=== PATIENT | male | born 1970 | race Caucasian/White ===

== ENCOUNTER 2018-11-06 19:26 | Emergency (ER) | payer BC, OTHER ==
[~2018-11-06] VITALS: Ht 180.3 cm; Wt 99.8 kg
[~2018-11-06 19:26] MED LIST: ALBU90OI INH; ERYT.5TO RIGHTEYE; HYDACE5 PO; ONDA4ODT MM; OSEL75CA PO; OXYACE5T PO; Percocet 10-321 EACH PO; Percocet 5-3251 EACH PO; RXERYTOPTH OP; RXONDA4ODT MM; TOBR.3OPSO OD; [UNRECOGNIZED DRUG - REMARK]
[2018-11-06] MEDS ORDERED: IBUP800 PO (21:34)
== END 2018-11-06 21:41 | disposition home or self-care (01) ==
LOC: ER 19:26
DX: S90.31XA Contusion of right foot, initial encounter (principal); W55.12XA Struck by horse, initial encounter
CPT/HCPCS: 73630; 99283-25

== ENCOUNTER 2019-04-17 00:35 | Inpatient (IN) | payer BC, OTHER ==
[~2019-04-17] VITALS: Ht 180.3 cm; Wt 96.5 kg
[~2019-04-17 00:35] MED LIST changes: +IBUP800 PO
[2019-04-17] MEDS ORDERED: CEPH500 PO (00:57)
[2019-04-17 01:59] LABS: BASOPHILS ABSOLUTE AUTO 0.05 K/mm3 (0.00-0.23); BASOPHILS PERCENT AUTO 0 % (0-2); EOSINOPHILS ABSOLUTE AUTO 0.07 K/mm3 (0.00-0.68); EOSINOPHILS PERCENT AUTO 1 % (0-6); Hematocrit 43.7 % (37.0-53.0); Hemoglobin 14.3 g/dL (13.5-17.5); IMMATURE GRAN ABSOLUTE AUTO 0.12 K/mm3 (0.00-0.10); IMMATURE GRAN PERCENT AUTO 1 % (0-1); LYMPHOCYTES ABSOLUTE AUTO 1.76 K/mm3 (0.84-5.20); LYMPHOCYTES PERCENT AUTO 12 % (21-46); MONOCYTES ABSOLUTE AUTO 1.16 K/mm3 (0.16-1.47); MONOCYTES PERCENT AUTO 8 % (4-13); Mean Corpuscular HGB Conc 32.7 g/dL (31.5-36.5); Mean Corpuscular Volume 89 fL (80-100); NEUTROPHILS ABSOLUTE AUTO 11.09 K/mm3 (1.96-9.15); NEUTROPHILS PERCENT AUTO 78 % (41-73); Platelet Count 281 K/mm3 (150-400); RDW Standard Deviation 42.5 fL (35.1-46.3); Red Blood Cell Count 4.93 M/mm3 (4.30-5.90); White Blood Cell Count 14.25 K/mm3 (4.00-11.30)
[2019-04-17 02:05] LABS: Alanine Aminotransfer (ALT/SGP 88 U/L (12-78); Albumin, Blood 3.8 g/dL (3.4-5.0); Albumin/Globulin Ratio 0.8 (0.8-1.8); Alk Phos 103 U/L (50-136); Anion Gap 7 mmol/L (6-16); Aspartate Aminotrans (AST/SGOT 58 U/L (12-37); Bilirubin, Total 1.6 mg/dL (0.1-1.0); Blood Urea Nitrogen 13 mg/dL (8-24); Bun/Creatinine Ratio 16.1 (12.0-20.0); CO2, Blood 28 mmol/L (21-32); Calcium, Blood 9.2 mg/dL (8.5-10.1); Chloride, Blood 103 mmol/L (98-108); Creatinine, Blood 0.81 mg/dL (0.60-1.20); Globulin, Blood 4.6 g/dL (2.2-4.0); Glomerular Filtration Rate >60 (60-); Glucose, Blood 120 mg/dL (70-99); Potassium, Blood 3.4 mmol/L (3.5-5.5); Sodium, Blood 138 mmol/L (136-145); Total Protein, Blood 8.4 g/dL (6.4-8.2)
[2019-04-17 02:59] LABS: WBC Count, Synovial Fluid 55 /mm3 (0-180)
[2019-04-17 03:07] LABS: Appearance, Synovial Fluid Clear (Clear); Color, Synovial Fluid Yellow (None-P Yel); RBC Count, Synovial Fluid 428 /mm3 (0-0)
[2019-04-17 03:33] LABS: Lymphs, Synovial Fluid 57 % (0-15); Monocytes/Macrophages, Synovia 36 % (0-65); Neutrophils, Synovial Fluid 7 % (0-24)
--- NOTE | 2019-04-17 16:49 | NUR ---
SHIFT SUMMARY ULTRASOUND THIS MORNING REVEALED FLUID IN LEFT LEG (AFFECTED AREA - KNEE). PT'S LEG FEELS HOT DOWN TO HIS ANKLE. CELLULITIS DIAGNOSIS, ALSO SUSPECTED HEMATOMA. LARGE "BOIL TYPE" ERUPTION INSIDE THE LEFT LEG NEAR THE KNEE. PT STATES THE AFFECTED AREA IS TENDER TO THE TOUCH. AWAITING ORTHO CONSULT TO INVESTIGATE. IV ANTIBIOTICS ORDERED. PT STATED HE HAD SOME PAIN AND NAUSEA THIS SHIFT. MEDICATED PER EMAR. HE IS INDEPENDENT IN THE ROOM. A&O X4.
--- NOTE | 2019-04-18 03:27 | NUR ---
NOC SHIFT SUMMARY PT IS PLEASANT AND COOPERATIVE WITH CARE. HE HAD VISITORS THIS EVENING WHO LEFT AROUND BEDTIME. HAS SLEPT ON AND OFF THROUGH THE NIGHT. PAIN MANAGED PER EMAR. VSS. AAOX4, RESP EVEN AND UNLABORED. APPEARS IN NO ACUTE DISTRESS. NO ACUTE CHANGES THIS NIGHT. HIS LEG LOOKS SIMILAR TO LAST NIGHT. WILL CONTINUE TO MONITOR.
[2019-04-18 05:08] LABS: BASOPHILS ABSOLUTE AUTO 0.05 K/mm3 (0.00-0.23); BASOPHILS PERCENT AUTO 1 % (0-2); EOSINOPHILS PERCENT AUTO 2 % (0-6); Hematocrit 38.6 % (37.0-53.0); Hemoglobin 12.7 g/dL (13.5-17.5); IMMATURE GRAN ABSOLUTE AUTO 0.05 K/mm3 (0.00-0.10); IMMATURE GRAN PERCENT AUTO 1 % (0-1); LYMPHOCYTES ABSOLUTE AUTO 1.41 K/mm3 (0.84-5.20); LYMPHOCYTES PERCENT AUTO 13 % (21-46); MONOCYTES ABSOLUTE AUTO 0.94 K/mm3 (0.16-1.47); MONOCYTES PERCENT AUTO 9 % (4-13); Mean Corpuscular HGB 28.7 pg (26.0-34.0); Mean Corpuscular HGB Conc 32.9 g/dL (31.5-36.5); Mean Corpuscular Volume 87 fL (80-100); Mean Platelet Volume 10.6 fL (9.1-12.4); NEUTROPHILS ABSOLUTE AUTO 8.33 K/mm3 (1.96-9.15); NEUTROPHILS PERCENT AUTO 76 % (41-73); Platelet Count 281 K/mm3 (150-400); RDW Coefficient Variation 12.9 % (11.7-14.2); RDW Standard Deviation 41.1 fL (35.1-46.3); Red Blood Cell Count 4.42 M/mm3 (4.30-5.90); White Blood Cell Count 10.98 K/mm3 (4.00-11.30)
[2019-04-18 05:38] LABS: Anion Gap 6 mmol/L (6-16); Blood Urea Nitrogen 15 mg/dL (8-24); Bun/Creatinine Ratio 17.2 (12.0-20.0); CO2, Blood 31 mmol/L (21-32); Calcium, Blood 8.7 mg/dL (8.5-10.1); Chloride, Blood 103 mmol/L (98-108); Creatinine, Blood 0.87 mg/dL (0.60-1.20); Glomerular Filtration Rate >60 (60-); Glucose, Blood 113 mg/dL (70-99); Phosphorus, Blood 4.2 mg/dL (2.5-4.9); Potassium, Blood 3.7 mmol/L (3.5-5.5); Sodium, Blood 140 mmol/L (136-145)
--- NOTE | 2019-04-18 10:41 | NUR ---
CALLED MADE TO DR. JACOBS OFFICE EDIE AT DR. JACOBS OFFICE FORWARDED PT INFO TO DR. CLIFTON. OFFICE INFORMED THAT DC IS PENDING ORTHO CONSULT
[2019-04-18] MEDS ORDERED: TRAM50 PO (11:03)
[2019-04-18] MEDS ORDERED: Vsl#3 Capsule1 EACH PO (11:03)
[2019-04-18 11:09] LABS: Albumin, Blood 2.9 g/dL (3.4-5.0); Albumin/Globulin Ratio 0.7 (0.8-1.8); Bilirubin, Direct 0.2 mg/dL (0.0-0.3); Bilirubin, Indirect 0.5 mg/dL (0.1-0.7); Bilirubin, Total 0.7 mg/dL (0.1-1.0); Globulin, Blood 4.2 g/dL (2.2-4.0); Total Protein, Blood 7.1 g/dL (6.4-8.2)
--- NOTE | 2019-04-18 11:46 | NUR ---
PT DISCHARGED PT DISCHARGED IN STABLE CONDITION WITH VSS. PT EDUCATED ON DC INSTRUCTIONS & FOLLOW UPS. PT MEDS FAXED TO [facility]. PT DENIES NEED FOR FURTHER INSTRUCTION. PT REFUSED WHEELCHAIR RIDE OUT & WALKED OUT OF BUILDING TO BE DRIVEN HOME BY DAUGHTER.
== END 2019-04-18 11:46 | disposition home or self-care (01) | DRG 603 ==
LOC: ER 00:35 → MEDS 04:00 → ENPENDDIS 04-18 11:28 → MEDS 04-18 11:46
PROVIDERS: Emergency Medicine; Internal Medicine; ADMIT Family Medicine
PROC: 0S9D3ZX Drainage of Left Knee Joint, Percutaneous Approach, Diagnostic (ICD-10-PCS; principal; 2019-04-17)
DX: L03.116 Cellulitis of left lower limb (principal); W22.8XXA Striking against or struck by other objects, initial encounter; E87.6 Hypokalemia; T24.232A Burn of second degree of left lower leg, initial encounter; X19.XXXA Contact with other heat and hot substances, initial encounter; S70.12XA Contusion of left thigh, initial encounter
CPT/HCPCS: 20610; 36415; 76882; 80053; 80069; 80076; 82248; 83605; 85025; 87040; 87070; 87075; 87205; 89051; 96365; 96372; 96375; 99284-25; J0690; J1650; J1885; J2405; J2543; J7050

== ENCOUNTER 2019-04-20 10:16 | Inpatient (IN) | payer BC, OTHER ==
[~2019-04-20] VITALS: Ht 180.3 cm; Wt 98.4 kg
[~2019-04-20 10:16] MED LIST changes: +CEPH500 PO; +TRAM50 PO; +Vsl#3 Capsule1 EACH PO
[2019-04-20 11:21] LABS: BASOPHILS ABSOLUTE AUTO 0.04 K/mm3 (0.00-0.23); BASOPHILS PERCENT AUTO 0 % (0-2); EOSINOPHILS ABSOLUTE AUTO 0.13 K/mm3 (0.00-0.68); EOSINOPHILS PERCENT AUTO 1 % (0-6); Hematocrit 40.6 % (37.0-53.0); Hemoglobin 13.2 g/dL (13.5-17.5); IMMATURE GRAN ABSOLUTE AUTO 0.07 K/mm3 (0.00-0.10); IMMATURE GRAN PERCENT AUTO 1 % (0-1); LYMPHOCYTES ABSOLUTE AUTO 1.63 K/mm3 (0.84-5.20); LYMPHOCYTES PERCENT AUTO 12 % (21-46); MONOCYTES PERCENT AUTO 8 % (4-13); Mean Corpuscular HGB 28.6 pg (26.0-34.0); Mean Corpuscular HGB Conc 32.5 g/dL (31.5-36.5); Mean Corpuscular Volume 88 fL (80-100); Mean Platelet Volume 10.7 fL (9.1-12.4); NEUTROPHILS ABSOLUTE AUTO 10.64 K/mm3 (1.96-9.15); NEUTROPHILS PERCENT AUTO 78 % (41-73); Platelet Count 359 K/mm3 (150-400); RDW Coefficient Variation 12.6 % (11.7-14.2); RDW Standard Deviation 40.5 fL (35.1-46.3); Red Blood Cell Count 4.61 M/mm3 (4.30-5.90); White Blood Cell Count 13.61 K/mm3 (4.00-11.30)
[2019-04-20 11:34] LABS: Alanine Aminotransfer (ALT/SGP 45 U/L (12-78); Albumin, Blood 3.1 g/dL (3.4-5.0); Albumin/Globulin Ratio 0.6 (0.8-1.8); Alk Phos 118 U/L (50-136); Anion Gap 4 mmol/L (6-16); Aspartate Aminotrans (AST/SGOT 27 U/L (12-37); Bilirubin, Total 0.9 mg/dL (0.1-1.0); Blood Urea Nitrogen 12 mg/dL (8-24); Bun/Creatinine Ratio 15.2 (12.0-20.0); CO2, Blood 31 mmol/L (21-32); Calcium, Blood 8.9 mg/dL (8.5-10.1); Chloride, Blood 102 mmol/L (98-108); Creatinine, Blood 0.79 mg/dL (0.60-1.20); Globulin, Blood 4.8 g/dL (2.2-4.0); Glomerular Filtration Rate >60 (60-); Glucose, Blood 109 mg/dL (70-99); Sodium, Blood 137 mmol/L (136-145); Total Protein, Blood 7.9 g/dL (6.4-8.2)
[2019-04-20] MEDS ORDERED: [UNRECOGNIZED DRUG - CODE] PO (14:55)
[2019-04-20 15:37] LABS: C-REACTIVE PROTEIN, EXT RANGE 15.8 mg/dL (0.000-0.300)
[2019-04-21 03:47] LABS: BASOPHILS ABSOLUTE AUTO 0.01 K/mm3 (0.00-0.23); BASOPHILS PERCENT AUTO 0 % (0-2); EOSINOPHILS PERCENT AUTO 0 % (0-6); Hematocrit 35.4 % (37.0-53.0); Hemoglobin 11.4 g/dL (13.5-17.5); IMMATURE GRAN ABSOLUTE AUTO 0.05 K/mm3 (0.00-0.10); IMMATURE GRAN PERCENT AUTO 1 % (0-1); LYMPHOCYTES ABSOLUTE AUTO 0.81 K/mm3 (0.84-5.20); LYMPHOCYTES PERCENT AUTO 7 % (21-46); MONOCYTES ABSOLUTE AUTO 0.46 K/mm3 (0.16-1.47); MONOCYTES PERCENT AUTO 4 % (4-13); Mean Corpuscular HGB 28.3 pg (26.0-34.0); Mean Corpuscular HGB Conc 32.2 g/dL (31.5-36.5); Mean Corpuscular Volume 88 fL (80-100); Mean Platelet Volume 10.2 fL (9.1-12.4); NEUTROPHILS PERCENT AUTO 88 % (41-73); Platelet Count 315 K/mm3 (150-400); RDW Coefficient Variation 12.5 % (11.7-14.2); RDW Standard Deviation 40.2 fL (35.1-46.3); Red Blood Cell Count 4.03 M/mm3 (4.30-5.90); White Blood Cell Count 11.03 K/mm3 (4.00-11.30)
[2019-04-21 04:08] LABS: Anion Gap 4 mmol/L (6-16); Blood Urea Nitrogen 13 mg/dL (8-24); Bun/Creatinine Ratio 16.9 (12.0-20.0); CO2, Blood 31 mmol/L (21-32); Calcium, Blood 8.8 mg/dL (8.5-10.1); Chloride, Blood 105 mmol/L (98-108); Creatinine, Blood 0.77 mg/dL (0.60-1.20); Glomerular Filtration Rate >60 (60-); Glucose, Blood 164 mg/dL (70-99); Potassium, Blood 4.7 mmol/L (3.5-5.5); Sodium, Blood 140 mmol/L (136-145)
--- NOTE | 2019-04-21 04:59 | NUR ---
SHIFT SUMMARY PT POD#1 LEFT MEDIAL THIGH I+D. AAOX4. DISCOMFORT CONTROLLED WITH 650 TYLENOL X1 THIS SHIFT. NO NAUSEA/EMESIS. SYLVIA WRAP TO LLE C/D/I. PPP, DENIES N/T, MOVES TOES WELL. PT UP TO RESTROOM SBA WITH FWW 50% WEIGHT BEARING TO LLE. GOOD PO INTAKE + OUTPUT. 40cc SEROUS DRAINAGE FROM HEMOVAC. CALL LIGHT WITHIN REACH, PT RESTING WELL AT THIS TIME.
--- NOTE | 2019-04-21 08:17 | NUR ---
DENIES ANY NEED FOR PAIN MEDS AT THIS TIME, REPORTS LLE WOUND FEELS "BETTER" THAN IT DID, STATES USING WALKER TO AMBULATE AND UNDERSTANDS 50% WEIGHT BEARING STATUS ON LLE, REPORTS FEELING CONSTIPATED TODAY, MONITOR FOR ANY CHANGES, KEEP DSG C/D/I, BOWEL CARE ORDERED, MEDICATE FOR PAIN PRN, ASSIST PRN.
--- NOTE | 2019-04-21 11:18 | NUR ---
04/21/19 1118 Mihai Ch PATIENT GIVEN ZOSYN 4.5MG AND VANCOMYCIN 2GM IN ER
[2019-04-21 14:08] LABS: Vancomycin, Trough 11.8 ug/mL (5.0-10.0)
--- NOTE | 2019-04-21 18:15 | NUR ---
SUMMARY PT HAD AN UNEVENTFUL DAY, MINIMAL PAIN, PT TOLERATING AMBULATING WITH WALKER AT 50% WB WELL, DSG C/D/I, 10ML SEROUS DRAINAGE NOTED OUT OF HEMOVAC T/O SHIFT, NO ACUTE CHANGES THIS SHIFT.
--- NOTE | 2019-04-22 07:58 | NUR ---
SUMMARY PT ABLE TO INDEPENDANTLY WALK TO BATHROOM WITH FOLLOWING PRECAUITIONS. PT MEDICATED WITH PO PAIN MED THIS AM. PT SLEEPING AFTERCIRC CKS KREMAIN INTACT TO EXTREMITIES.
--- NOTE | 2019-04-22 11:43 | NUR ---
DOCTOR AT BEDSIDE DR. ALFORD IN TO SEE PATIENT AT 1140.
[2019-04-22] MEDS ORDERED: Vsl#3 Capsule1 EACH PO (15:14)
[2019-04-22] MEDS ORDERED: ACET325 PO (15:15)
[2019-04-22] MEDS ORDERED: OXYC5 PO (15:15)
[2019-04-22] MEDS ORDERED: MIRALAX17 GM PO (15:17)
[2019-04-22] MEDS ORDERED: Bactrim Ds Tab1 EACH PO (15:18)
--- NOTE | 2019-04-22 15:35 | NUR ---
DISCHARGE SCRIPTS & DRSGS GIVEN, PT EDUCATED ON MEDS, WOUND CARE, AND ACTIVITY RESTRICTIONS. ESCORTED OUT VIA W/C.
== END 2019-04-22 15:35 | disposition home or self-care (01) | DRG 581 ==
LOC: ER 10:16 → SURS 10:17 → ER 15:49 → SURS 17:55
PROVIDERS: Internal Medicine; Orthopaedic Surgery; ADMIT Internal Medicine
PROC: 0J9M0ZZ Drainage of Left Upper Leg Subcutaneous Tissue and Fascia, Open Approach (ICD-10-PCS; principal; 2019-04-20 15:00)
DX: L03.116 Cellulitis of left lower limb (principal); B95.61 Methicillin susceptible Staphylococcus aureus infection as the cause of diseases classified elsewhere; S70.12XA Contusion of left thigh, initial encounter; L02.416 Cutaneous abscess of left lower limb; K59.00 Constipation, unspecified; T24.212A Burn of second degree of left thigh, initial encounter; X19.XXXA Contact with other heat and hot substances, initial encounter; W22.8XXA Striking against or struck by other objects, initial encounter
CPT/HCPCS: 36415; 76882; 80048; 80053; 80202; 82550; 82565; 85025; 85651; 86140; 87040; 87070; 87071; 87075; 87077; 87147; 87186; 87205; 96365; 96366; 96367; 99284-25; A9270; J0690; J1100; J1650; J1885; J2250; J2405; J2543; J2704; J3010; J3370; J7050

== ENCOUNTER → 2021-12-27 | Outpatient (CLI) | payer BC, OTHER ==
[~2021-12-27] MED LIST changes: +ACET325 PO; +Bactrim Ds Tab1 EACH PO; +MIRALAX17 GM PO; +OXYC5 PO; +[UNRECOGNIZED DRUG - CODE] PO
[2021-12-27 11:19] LABS: BASOPHILS ABSOLUTE AUTO 0.06 K/mm3 (0.00-0.23); BASOPHILS PERCENT AUTO 1 % (0-2); EOSINOPHILS ABSOLUTE AUTO 0.17 K/mm3 (0.00-0.68); EOSINOPHILS PERCENT AUTO 2 % (0-6); Hematocrit 46.4 % (37.0-53.0); Hemoglobin 15.3 g/dL (13.5-17.5); IMMATURE GRAN ABSOLUTE AUTO 0.02 K/mm3 (0.00-0.10); IMMATURE GRAN PERCENT AUTO 0 % (0-1); LYMPHOCYTES ABSOLUTE AUTO 1.97 K/mm3 (0.84-5.20); LYMPHOCYTES PERCENT AUTO 26 % (21-46); MONOCYTES ABSOLUTE AUTO 0.46 K/mm3 (0.16-1.47); MONOCYTES PERCENT AUTO 6 % (4-13); Mean Corpuscular HGB 28.8 pg (26.0-34.0); Mean Corpuscular Volume 87 fL (80-100); Mean Platelet Volume 10.5 fL (9.1-12.4); NEUTROPHILS ABSOLUTE AUTO 4.91 K/mm3 (1.96-9.15); NEUTROPHILS PERCENT AUTO 65 % (41-73); Platelet Count 305 K/mm3 (150-400); RDW Coefficient Variation 13.2 % (11.7-14.2); RDW Standard Deviation 41.9 fL (35.1-46.3); Red Blood Cell Count 5.31 M/mm3 (4.30-5.90); White Blood Cell Count 7.59 K/mm3 (4.00-11.30)
== END | disposition home or self-care (01) ==
LOC: LAB SHORT 11:16
PROVIDERS: Physician Assistant
DX: R53.83 Other fatigue (principal)
CPT/HCPCS: 85025

== ENCOUNTER 2022-04-28 01:41 | Emergency (ER) | payer BC, OTHER ==
[~2022-04-28] VITALS: Ht 180.3 cm; Wt 98.0 kg
[2022-04-28] MEDS ORDERED: CYCL10 PO (03:29)
== END 2022-04-28 04:19 | disposition home or self-care (01) ==
LOC: ER 01:41
DX: M54.6 Pain in thoracic spine (principal); Z79.899 Other long term (current) drug therapy
CPT/HCPCS: A9270; J1885

== ENCOUNTER 2024-06-21 20:46 | Emergency (ER) | payer BC, OTHER ==
[~2024-06-21] VITALS: Ht 180.3 cm; Wt 97.5 kg
[~2024-06-21 20:46] MED LIST changes: +CYCL10 PO
[2024-06-21 21:20] LABS: BASOPHILS ABSOLUTE AUTO 0.05 K/mm3 (0.00-0.23); BASOPHILS PERCENT AUTO 1 % (0-2); EOSINOPHILS ABSOLUTE AUTO 0.26 K/mm3 (0.00-0.68); EOSINOPHILS PERCENT AUTO 3 % (0-6); Hematocrit 42.7 % (37.0-53.0); Hemoglobin 14.5 g/dL (13.5-17.5); IMMATURE GRAN ABSOLUTE AUTO 0.03 K/mm3 (0.00-0.10); IMMATURE GRAN PERCENT AUTO 0 % (0-1); LYMPHOCYTES ABSOLUTE AUTO 2.67 K/mm3 (0.84-5.20); LYMPHOCYTES PERCENT AUTO 26 % (21-46); MONOCYTES ABSOLUTE AUTO 0.73 K/mm3 (0.16-1.47); MONOCYTES PERCENT AUTO 7 % (4-13); Mean Corpuscular HGB 29.2 pg (26.0-34.0); Mean Corpuscular Volume 86 fL (80-100); Mean Platelet Volume 10.5 fL (9.1-12.4); NEUTROPHILS ABSOLUTE AUTO 6.67 K/mm3 (1.96-9.15); NEUTROPHILS PERCENT AUTO 64 % (41-73); Platelet Count 281 K/mm3 (150-400); RDW Standard Deviation 40.5 fL (35.1-46.3); Red Blood Cell Count 4.96 M/mm3 (4.30-5.90); White Blood Cell Count 10.41 K/mm3 (4.00-11.30)
[2024-06-21 21:38] LABS: Albumin, Blood 4.3 g/dL (3.4-5.0); Albumin/Globulin Ratio 1.2 (0.8-1.8); Bilirubin, Total 0.6 mg/dL (0.1-1.0); Bun/Creatinine Ratio 16.3 (12.0-20.0); Calcium, Blood 9.3 mg/dL (8.5-10.1); Creatinine, Blood 0.86 mg/dL (0.60-1.20); Globulin, Blood 3.6 g/dL (2.2-4.0); Potassium, Blood 3.7 mmol/L (3.5-5.5); Total Protein, Blood 7.9 g/dL (6.4-8.2)
[2024-06-22 00:45] VITALS: BP 162/99
== END 2024-06-22 01:02 | disposition home or self-care (01) ==
LOC: ER 20:46
PROVIDERS: Physician Assistant
DX: R07.9 Chest pain, unspecified (principal)
CPT/HCPCS: 71045; 80053; 84484; 85025; 93005; 93010; 99285-25